=== PATIENT | male | born 1955 | race Caucasian/White ===

== ENCOUNTER 2021-05-14 07:37 | Day surgery (SDC) | payer OTHER ==
[2021-05-14 08:09] VITALS: BP 117/79
[2021-05-14] MEDS ORDERED: AMLO-331 PO (08:12)
[2021-05-14] MEDS ORDERED: CEFAZOLIN PMX 1GM/50ML 50 ML ONE (08:21)
[2021-05-14] MEDS ORDERED: CEFAZOLIN PMX 1GM/50ML 50 ML IV ONE (08:30)
[2021-05-14] MEDS ORDERED: LIDOCAINE 1%, 20ML ONE ×2 (08:32→09:39)
[2021-05-14] MEDS ORDERED: FENTANYL PF 100 MCG/2ML ONE (08:45)
[2021-05-14] MEDS ORDERED: FLUMAZENIL 0.1 MG/1 ML, 5ML ONE (08:45)
[2021-05-14] MEDS ORDERED: NALOXONE 1 MG/ML, 2ML ONE (08:45)
[2021-05-14] MEDS ORDERED: MIDAZOLAM 1 MG/ML, 5ML ONE (08:45)
[2021-05-14] MEDS ORDERED: PLEASE ENTER HEIGHT AND WEIGHT MC SCH (10:00)
== END 2021-05-14 11:10 | disposition home or self-care (01) ==
LOC: OUT 07:37
PROVIDERS: ATTEND Internal Medicine Hematology & Oncology
DX: C83.08 Small cell B-cell lymphoma, lymph nodes of multiple sites (principal); I12.9 Hypertensive chronic kidney disease with stage 1 through stage 4 chronic kidney disease, or unspecified chronic kidney disease; N18.9 Chronic kidney disease, unspecified; F17.210 Nicotine dependence, cigarettes, uncomplicated; Z79.899 Other long term (current) drug therapy; Z88.2 Allergy status to sulfonamides; Z82.49 Family history of ischemic heart disease and other diseases of the circulatory system
CPT/HCPCS: 36561; 76937; 77001; 99156; 99157; C1769; C1788; C1894; J0690; J1642; J2250; J3010; J2310